=== PATIENT | male | born 1970 | race Caucasian/White ===

== ENCOUNTER 2016-12-16 18:39 | Emergency (ER) | payer OTHER, SELFPAY ==
--- NOTE | 2016-12-16 19:18 | EDM.PDOC ---
ED HPI GENERAL MEDICAL PROBLEM - General Chief Complaint: Abdominal Pain Stated Complaint: abdominal pain Time Seen by Provider: 12/16/16 19:00 Source of Information: Reports: Patient. Denies: Old Records (No [facility] records available) History Limitations: Reports: No Limitations - History of Present Illness INITIAL COMMENTS - FREE TEXT/NARRATIVE: Patient drove himself to the emergency room for evaluation of nonspecific occasional intermittent 5/10 sharp mid abdominal pain secondary to a small hernia, which he noticed a few days ago. He did bump the area with onset of the above symptoms but no history of significant trauma, lifting injury, etc. No recent history of abdominal pain, heartburn, nausea, diarrhea, melena, gross hematochezia, or any food intolerance, including fatty foods, etc. with normal bowel movement earlier today. The patient also denies any recent fever, cough, wheezing, dyspnea, etc.. He is also concerned that his girlfriend is being treated for trichomonas and is requesting initiation of therapy, although he has no symptoms at this time. No apparent other history of STD exposure. He also had some minor abrasions secondary to hitting his left leg on the trailer with no history of local signs of infection, foreign body, etc. His last tetanus booster was on 12/23/16 by his history Onset: Gradual, Unknown/Unsure Onset Date: 12/14/16 Duration: Improving Location: Reports: Abdomen. Denies: Head, Face, Neck, Chest, Back, Pelvis, Radiates to Quality: Reports: Sharp Severity: Moderate Improves with: Reports: Rest Worsens with: Reports: Movement Context: Reports: Other (As above) Associated Symptoms: Denies: Confusion, Chest Pain, Cough, Diaphoresis, Fever/ Chills, Headaches, Loss of Appetite, Malaise, Nausea/Vomiting, Shortness of Breath, Weakness Treatments COATER: Reports: Other (see below) (None) Right Middle Abdominal Pain Score (Numeric/FACES): 5 - Related Data Allergies Allergy/AdvReac Type Severity Reaction Status Date / Time aspirin Allergy Hives Verified 12/16/16 19:49 Penicillins Allergy Shortness Verified 12/16/16 19:49 of Breath Home Meds: Home Meds Gabapentin [Neurontin] 1,200 mg PO TID 12/16/16 [History] Meclizine [Antivert] 50 mg PO TID 12/16/16 [History] Verapamil [Calan SR] 180 mg PO DAILY 12/16/16 [History] Voltarin 12/16/16 [History] atorvaSTATin [Lipitor] 40 mg PO ONETIME 12/16/16 [History] metroNIDAZOLE [Flagyl] 500 mg PO Q8H #30 tablet 12/16/16 [Rx] tiZANidine [Zanaflex] 4 mg PO TID 12/16/16 [History] Past Medical History HEENT History: Reports: Other (See Below) Other HEENT History: Chronic vertigo Cardiovascular History: Reports: Hypertension Musculoskeletal History: Reports: Back Pain, Chronic, Neck Pain, Chronic, Osteoarthritis Neurological History: Reports: Neuropathy, Peripheral Psychiatric History: Reports: Anxiety, Depression Social & Family History - Tobacco Use Smoking Status *Q: Current Every Day Smoker Tobacco Use Within Last Twelve Months: Cigarettes Years of Tobacco use: 40 Packs/Tins Daily: 1 Smoking Cessation Information Provided To Patient: Yes - Alcohol Use Alcohol Use History: Yes Days Per Week of Alcohol Use: 0 (DWI) Number of Drinks Per Day: 1 (About once per month) Total Drinks Per Week: 0 - Recreational Drug Use Recreational Drug Use: No Drug Use in Last 12 Months: No - Living Situation & Occupation Living situation: Reports: Single Occupation: Employed (certified social workers in health care) ED ROS GENERAL - Review of Systems Review Of Systems: ROS reveals no pertinent complaints other than HPI. ED EXAM, GI/ABD - Physical Exam Exam: See Below Exam Limited By: No Limitations General Appearance: Alert, WD/WN, No Apparent Distress, Anxious (Mild) Head: Atraumatic, Normocephalic. No: Facial Swelling, Facial Tenderness, Sinus Tenderness Neck: Normal Inspection, Supple, Non-Tender, Full Range of Motion. No: Lymphadenopathy (L), Lymphadenopathy (R), Thyromegaly Respiratory/Chest: No Respiratory Distress, Lungs Clear, Normal Breath Sounds, No Accessory Muscle Use, Chest Non-Tender. No: Pleural Rub, Retractions Cardiovascular: Normal Peripheral Pulses, Regular Rate, Rhythm, No Edema, No Gallop, No JVD, No Murmur, No Rub. No: Gallop/S3, Gallop/S4, Friction Rub GI/Abdominal Exam: Normal Bowel Sounds, Soft, Non-Tender, No Organomegaly, No Distention, No Abnormal Bruit, No Mass, Pelvis Stable, Hernia (2 cm in diameter right medial near the umbilicus nonincarcerated ventral wall abdominal hernia with no significant localized tenderness). No: Guarding, Rebound (Male) Exam: Deferred Rectal (Males) Exam: Deferred Back Exam: Normal Inspection, Full Range of Motion. No: CVA Tenderness (L), CVA Tenderness (R), Muscle Spasm Extremities: Normal Range of Motion, Non-Tender, No Pedal Edema, Normal Capillary Refill, Other (Multiple mild superficial abrasions over the distal anterior tibial region and ankle of his left leg with no foreign body, signs of infection, etc. with mild eschar present) Neurological: Alert, Oriented, CN II-XII Intact, Normal Cognition, Normal Gait, No Motor/Sensory Deficits Psychiatric: Normal Affect, Normal Mood Skin Exam: Warm, Normal Color, No Rash, Wound/Incision (As above). No: Diaphoretic, Jaundice, Pallor Lymphatic: No Adenopathy Course - Vital Signs Last Recorded V/S: Last Vital Signs Temp 36.6 C 12/16/16 18:44 Pulse 70 12/16/16 18:44 Resp 20 12/16/16 18:44 BP 115/78 12/16/16 18:44 Pulse Ox 98 12/16/16 18:44 Vital Signs - 24 hr 12/16/16 18:44 Temperature [ 36.6 C Oral] Pulse, 70 Peripheral [ Pulse Oximetry] Respiratory 20 Rate Blood Pressure 115/78 [Right Arm] O2 Sat by Pulse 98 Oximetry - Orders/Labs/Meds Orders: Active Orders 24 hr Category Date Time Status Obtain Past Medical Record [OM.PC] Routine Oth 12/16/16 19:19 Active Labs: None Meds: Medications Discontinued Medications Generic Name Dose Route Start Last Admin Trade Name Freq PRN Reason Stop Dose Admin Metronidazole 500 mg 12/16/16 19:19 12/16/16 19:58 Flagyl PO 12/16/16 19:20 500 mg ONETIME ONE Administration - Radiology Interpretation Free Text/Narrative:: None Departure - Departure Time of Disposition: 20:25 Disposition: Home, Self-Care 01 Condition: Good Clinical Impression: Trichomonas exposure, Tobacco abuse counseling, Abrasion Abdominal hernia Qualifiers: Hernia type: ventral Obstruction and gangrene presence: with obstruction but without gangrene Qualified Code(s): K43.6 - Other and unspecified ventral hernia with obstruction, without gangrene Hypertension Qualifiers: Hypertension type: essential hypertension Qualified Code(s): I10 - Essential ( primary) hypertension COPD (chronic obstructive pulmonary disease) Qualifiers: COPD type: emphysema Emphysema type: panlobular Qualified Code(s): J43.1 - Panlobular emphysema Peripheral neuropathy Qualifiers: Peripheral neuropathy type: polyneuropathy, unspecified Qualified Code(s): G62.9 - Polyneuropathy, unspecified - Discharge Information Prescriptions: metroNIDAZOLE [Flagyl] 500 mg PO Q8H #30 tablet Instructions: Hernia, Adult, [id number] Forms: ED Department Discharge Additional Instructions: 1. Followup with your regular provider in 10-14 days as directed for reevaluation of your small abdominal hernia and possible surgical referral. 2. BenGay or equivalent, heating pad, and/or ice packs as directed. 3. Stop all tobacco use KARLA as directed/per provided information and consider contacting Quit LIne, etc.. 4. Strict no alcohol use with use of your Flagyl. Discuss with your regular provider possible further testing, if you become symptomatic from the possible trichomonas infection and/or you do not respond to this medication - Problem List & Annotations (1) Abdominal hernia SNOMED Code(s): 34502253 Code(s): K46.9 - UNSPECIFIED ABDOMINAL HERNIA WITHOUT OBSTRUCTION OR GANGRENE Status: Acute Priority: High Onset Date: ~12/14/16 Annotation/ Comment:: Mild abdominal hernia relatively nonsymptomatic. No further workup needed at this time with patient advised to follow-up with his regular provider as per discharge instructions. He does not need a work excuse by his history Qualifiers: Hernia type: ventral Obstruction and gangrene presence: with obstruction but without gangrene Qualified Code(s): K43.6 - Other and unspecified ventral hernia with obstruction, without gangrene (2) Trichomonas exposure SNOMED Code(s): 076740999 Code(s): Z20.2 - CONTACT W AND EXPOSURE TO INFECT W A SEXL MODE OF TRANSMISS Status: Acute Priority: High Onset Date: ~12/16/16 Annotation/Comment: : Initial dose of Flagyl given in the emergency room. Close follow-up by his regular provider as per discharge instructions. The patient is not symptomatic (3) Hypertension SNOMED Code(s): 08488241 Code(s): I10 - ESSENTIAL (PRIMARY) HYPERTENSION Status: Chronic Priority : Medium Annotation/Comment:: Good control in the emergency room. Patient is uncertain about his regular medical regimen Qualifiers: Hypertension type: essential hypertension Qualified Code(s): I10 - Essential (primary) hypertension (4) COPD (chronic obstructive pulmonary disease) SNOMED Code(s): 29910977 Code(s): J44.9 - CHRONIC OBSTRUCTIVE PULMONARY DISEASE, UNSPECIFIED Status : Chronic Priority: Medium Annotation/Comment:: Stable by patient history with no recent fever or bronchitic type symptoms Qualifiers: COPD type: emphysema Emphysema type: panlobular Qualified Code(s): J43.1 - Panlobular emphysema (5) Peripheral neuropathy SNOMED Code(s): 167251871 Code(s): G62.9 - POLYNEUROPATHY, UNSPECIFIED Status: Chronic Priority: Medium Annotation/Comment:: Stable by history Qualifiers: Peripheral neuropathy type: polyneuropathy, unspecified Qualified Code(s): G62.9 - Polyneuropathy, unspecified (6) Tobacco abuse counseling SNOMED Code(s): 964268860, 285352850, 585403393 Code(s): Z71.6 - TOBACCO ABUSE COUNSELING Status: Chronic Priority: Medium Annotation/Comment:: Tobacco cessation strongly encouraged with information provided at discharge (7) Abrasion SNOMED Code(s): 961575822 Code(s): T14.8 - OTHER INJURY OF UNSPECIFIED BODY REGION Status: Chronic Priority: Medium Annotation/Comment:: Minor abrasions as above. Wound care discussed. Tetanus is up-to-date by his history - Problem List Review Problem List Initiated/Reviewed/Updated: Yes - My Orders Last 24 Hours: My Active Orders 12/16/16 19:19 Obtain Past Medical Record [OM.PC] Routine - Assessment/Plan Last 24 Hours: My Active Orders 12/16/16 19:19 Obtain Past Medical Record [OM.PC] Routine Assessment:: As above Plan: As above. Extensive precautions were given to the patient, who is in agreement with the treatment plan. See Patient Instructions for further treatment and plan.
[2016-12-16] MEDS ORDERED: metroNIDAZOLE 500 MG Tab PO ONE (19:19)
== END 2016-12-16 20:25 | disposition home or self-care (01) ==
LOC: LL.ED 18:39
DX: K43.6 Other and unspecified ventral hernia with obstruction, without gangrene (principal); J43.1 Panlobular emphysema; G62.9 Polyneuropathy, unspecified; I10 Essential (primary) hypertension; M19.90 Unspecified osteoarthritis, unspecified site; F17.210 Nicotine dependence, cigarettes, uncomplicated; Z71.6 Tobacco abuse counseling; Z88.0 Allergy status to penicillin; Z79.899 Other long term (current) drug therapy; Z88.6 Allergy status to analgesic agent
CPT/HCPCS: 99283; A9270